=== PATIENT | female | born 1970 | race African-American/Black ===

== ENCOUNTER 2024-02-05 16:19 | Emergency (ER) | payer BC, SELFPAY ==
[2024-02-05] MEDS ORDERED: Ketorolac Tromethamine 30 MG (1 mL) VIAL ONE (16:36)
== END 2024-02-05 17:40 | disposition home or self-care (01) ==
LOC: CSHERS 16:19
DX: M25.572 Pain in left ankle and joints of left foot (principal); M79.605 Pain in left leg; M25.512 Pain in left shoulder; W19.XXXA Unspecified fall, initial encounter
CPT/HCPCS: 96372; J1885